=== PATIENT | male | born 1970 | race Hispanic/Latino ===

== ENCOUNTER → 2022-10-02 | Outpatient (CLI) | payer OTHER ==
[~2022-10-02] MED LIST: IOHEXOL 350 MG/ML 100ML INFUS..BTL IV ONE
== END | disposition home or self-care (01) ==
LOC: RAH 07:45
PROVIDERS: ATTEND Internal Medicine Cardiovascular Disease
DX: I25.10 Atherosclerotic heart disease of native coronary artery without angina pectoris (principal)
CPT/HCPCS: 75574; Q9967 ×2

== ENCOUNTER → 2023-03-30 | Outpatient (CLI) | payer OTHER ==
[~2023-03-30] MED LIST changes: +AEC81 PO; +ALBU0.63 IH; +ATOR40TA69 PO; +FAMO20TA8 PO; +FURO20TA6 PO; +INSU3INS3 SQ; -IOHEXOL 350 MG/ML 100ML INFUS..BTL IV ONE; +METF-446 PO; +METO25 PO; +SACU1TAB PO; +SEMA7TAB2 PO; +TICA90TA PO
== END | disposition home or self-care (01) ==
LOC: SHCH 08:28
PROVIDERS: ATTEND Internal Medicine Cardiovascular Disease
DX: I08.1 Rheumatic disorders of both mitral and tricuspid valves (principal); I10 Essential (primary) hypertension; I42.9 Cardiomyopathy, unspecified; E78.5 Hyperlipidemia, unspecified
CPT/HCPCS: 93306

== ENCOUNTER 2024-10-31 16:47 | Emergency (ER) | payer OTHER ==
[~2024-10-31] VITALS: Ht 167.6 cm; Wt 85.3 kg
--- NOTE | 2024-10-31 17:12 | NUR ---
PLACED A CALL TO PEP LINE.
--- NOTE | 2024-10-31 17:12 | ERN ---
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 ONSET APPROXIMATELY 15 MINUTES PRIOR TO ARRIVAL. NO ACTIVE BLEEDING AT THIS TIME PATIENT STATES HE SAID THE HEPATITIS-B SERIES. THE SOURCE PATIENT IS KNOWN AND WE WILL BE DRAWN FOR HIV AND HEPATITIS, PATIENT IS CURRENTLY BEING DRAWN. ADDITIONALLY WE WILL FOLLOW TO NOTIFY THE POST EXPOSURE HOTLINE. Allergies: Coded Allergies: latex (Unverified Allergy, Unknown, 12/16/22) Home Meds Active Scripts Metoprolol Tartrate (Lopressor) 25 Mg Tab, 12.5 MG PO BID, #30 TAB Prov:ALONSO SPARROW MD 12/26/22 Furosemide (Lasix 20Mg Tab) 20 Mg Tablet, 20 MG PO BID@,, #60 TAB Prov:ALONSO SPARROW MD 12/26/22 Reported Medications Sacubitril/Valsartan (Entresto 24 mg-26 mg Tablet) 1 Each Tablet, 1 EACH PO HS, TAB 12/27/22 Albuterol Sulfate (Albuterol Sulfate) 0.63 Mg/3 Ml Vial.neb, 0.63 MG IH AD PRN for SHORTNESS OF BREATH/WHEEZING, INH 12/22/22 Famotidine (Famotidine) 20 Mg Tablet, 20 MG PO BID, TAB 12/16/22 Insulin Glargine,Hum.rec.anlog (Lantus Solostar) 100 Unit/1 Ml Insuln.pen, 50 UNIT SQ BID, SYRINGE 50-70 UNITS 12/16/22 Semaglutide (Rybelsus) 7 Mg Tablet, 7 MG PO DAILY, TAB 12/16/22 Ticagrelor (Brilinta) 90 Mg Tablet, 90 MG PO BID, TAB 12/16/22 Aspirin (ASPIRIN 81 MG ECTAB) 81 Mg Ectab, 81 MG PO DAILY for 90 Days, #30 TAB.EC 12/16/22 Metformin HCl (Metformin HCl) 1,000 Mg Tablet, 1000 MG PO BID, TAB 12/16/22 Atorvastatin Calcium (LIPITOR) 80 Mg Tablet, 80 MG PO DAILY, TAB 12/16/22 Past Medical History Past Medical History: Asthma, CAD, Diabetes-Type II, GERD, High Cholesterol, Heart Disease, Hypertension, Kidney Stone, SD Additional Past Medical Hx: HX: HEP A, FATTY LIVER Surgical History: Appendectomy, CABG Surgical History Other: HEART CATH X 4 W/3 STENTS, EGD/COLONSCOPY RN Note Reviewed/Agreed w/PFSH: Yes Review of System Dictation CONSTITUTIONAL: NEGATIVE EXCEPT FOR HPI HEAD/FACE: NEGATIVE EXCEPT FOR HPI EENT: NEGATIVE EXCEPT FOR HPI RESPIRATORY: NEGATIVE EXCEPT FOR HPI GASTROINTESTINAL/ABDOMINAL: NEGATIVE EXCEPT FOR HPI GENITOURINARY: NEGATIVE EXCEPT FOR HPI MUSCULOSKELETAL: NEGATIVE EXCEPT FOR HPI INTEGUMENTARY: NEGATIVE EXCEPT FOR HPI NEEDLE STICK INJURY TO PLANTAR ASPECT LEFT THUMB AT THE BASE NEUROLOGICAL/PSYCH: NEGATIVE EXCEPT FOR HPI HEMATOLOGIC/LYMPHATIC: NEGATIVE EXCEPT FOR HPI ALL SYSTEMS NEGATIVE, EXCEPT NOTED ABOVE. 13 POINT REVIEW OF SYSTEMS ASSESSED AND ALL NEGATIVE EXCEPT FOR ABOVE. Initial Vital Sign VS Vital Signs Date Time Temp Pulse Resp B/P (MAP) Pulse Ox O2 Delivery O2 Flow Rate FiO2 10/31/24 16:48 98.2 88 18 130/67 98 Room Air 0 10/31/24 19:21 21 Physical Exam Dictation VITAL SIGNS REVIEWED NO PAIN GENERAL APPEARANCE: ALERT, ORIENTED X 3, NO ACUTE DISTRESS, WELL DEVELOPED, NOURISHED. HEAD AND FACE: NON-TRAUMATIC. EYES: PERRL, PINK CONJUNCTIVAS, EYELID NO TRAUMA, ANTERIOR CHAMBER WITH ARCUS SENILIS. EARS: PINNAS INTACT AND NO SIGNS OF TRAUMA OR ERYTHEMA EAR CANALS CLEAR AND NO DISCHARGE TM NO ERYTHEMA NOSE: NO DISCHARGE, NO BLEEDING. OROPHARYNX: MOUTH NORMAL, TONGUE PINK, PHARYNX CLEAR,NO ERYTHEMA, TONSILS NO EXUDATES, NO ABSCESSES NOTED, MUCOUS MEMBRANE MOIST NECK: SUPPLE, NON-TENDER, NO THYROMEGALY, NO MASSES, NO JVD, NO BRUITS BREAST:DEFERRED CHEST:NO TENDERNESS, NO CREPITUS, NO PARADOXICAL MOVEMENT, NO RETRACTIONS LUNGS:CLEAR, WELL-VENTILATED, SYMMETRIC, NO RALES, NO WHEEZING, NO RHONCHI, NO STRIDOR, GOOD BREATH SOUNDS BILATERALLY HEART: REGULAR RATE, REGULAR RHYTHM, NO MURMUR, NO GALLOPS VASCULAR: NO PERIPHERAL EDEMA, ABDOMEN: SOFT, POSITIVE BOWEL SOUNDS, NONDISTENDED, NO GUARDING, NONTENDER, NO REBOUND, NO MASSES NO HEPATOMEGALY, NO SPLENOMEGALY, NO WHEATLEY'S SIGN, NO HERNIAS. RECTAL: DEFERRED GENITAL: DEFERRED NEUROLOGICAL: NORMAL SPEECH, MOTOR FUNCTION INTACT, SENSORY FUNCTION INTACT MUSCULOSKELETAL: NECK NONTENDER, FULL RANGE OF MOTION, BACK NONTENDER, FULL RANGE OF MOTION, EXTREMITIES: NONTENDER, FULL RANGE OF MOTION SKIN: COLOR PINK, DRY, SUPERFICIAL NEEDLE STICK INJURY TO DORSAL ASPECT OF LEFT THUMB BASE. NO ACTIVE BLEEDING LYMPHATIC: DEFERRED Results (Laboratory/Radiology) Laboratory/Radiology Laboratory Tests Test 10/31/24 17:24 Hepatitis B Surface Antibody. Positive (Reactive) Hepatitis B Core Total Antibody. Non-Reactive (Nonreactive) Hepatitis C Antibody Non-Reactive (Nonreactive) HIV (1&2) Antibody Non-Reactive (Negative) HIV P24 Antigen, Qualitative Non-Reactive (Negative) Labs Reviewed?: Yes ED Course ED Course Orders Procedure Category Date Status Time Hepatitis C Ab LAB 10/31/24 Complete W/Reflex To Pcr 17:06 Hepatitis B Surface LAB 10/31/24 Complete Antibody 17:06 Hepatitis B Core Total LAB 10/31/24 Complete 17:06 Hiv 1-2 W/Reflex To LAB 10/31/24 Complete Confirm 17:06 Vital Signs Date Time Temp Pulse Resp B/P (MAP) Pulse Ox O2 Delivery O2 Flow Rate FiO2 10/31/24 19:21 98.4 88 18 132/78 99 Room Air* 0 21 10/31/24 16:48 98.2 88 18 130/67 98 Room Air 0 19:00 hours, patient is aware that he has HIV negative. He has already been in touch per the hospital protocol with post exposure hotline. No recommendations at this time. Patient discharged home to follow up with his doctor and Employee Health in the next 1-2 days per protocol. Medical Decision Making MDM Medical discharge making based on labs and consult with post exposure hotline. HIV negative No further recommendations from hotline Patient discharged home to follow up with employee health in his primary care doctor. DX & DISP Disposition: Discharge Departure Impression: Primary Impression: Needle stick injury of finger of left hand Condition: Stable Additional Instructions: Follow-up with primary care provider in 1 to 2 days. Take medications as directed here in the emergency room. Okay to continue home medications unless otherwise discussed during your visit in the emergency room today. Return to your nearest emergency room if symptoms worsen or if there is no improvement. Call 911 if you need immediate assistance. Take Tylenol or Motrin [id number] as needed and if no contraindications are present. Increase oral hydration. A wound culture or urine culture was ordered here in the emergency room department please follow-up with primary care provider and advise them to get repeat ports from our facility. If you had any Robinson wrap/splints that were applied here, please do not remove them until you see your primary care or specialty. Follow back up with your primary care doctor and Employee Health per hospital protocol. Referrals: NONE (PCP) Time of Disposition: 19:04 I have reviewed the case, and I agree with, Diagnosis and Plan ATTESTATION BY PHYSICIAN I PERFORMED THE SUBSTANTIVE PORTION OF THE VISIT. I HAVE REVIEWED AND PERSONALLY MADE AND APPROVED THE MANAGEMENT PLAN THAT IS DOCUMENTED IN THE NOTE BY MYSELF FOR THE A PP. I ACKNOWLEDGED FOR RESPONSIBILITY FOR THE PATIENT'S MANAGEMENT PLAN. BRIGITTE CAST NP Oct 31, 2024 17:12 OCTAVIO MCFADDEN MD Nov 02, 2024 07:35
[2024-10-31 18:39] LABS: HIV 1&2 ANTIBODY Non-Reactive (Negative); HIV-1 p24 Antigen Non-Reactive (Negative)
--- NOTE | 2024-10-31 19:19 | NUR ---
PATIENT TALKED TO ROSALIND FROM PEP LINE.
[2024-10-31 19:21] VITALS: BP 132/78; PULSE 88; RESP 18; TEMP 98.4; O2SAT 99
[2024-11-01 13:58] LABS: HEPATITIS B CORE AB TOTAL Non-Reactive (Nonreactive); HEPATITIS B SURFACE ANTIBODY Positive (Reactive); HEPATITIS C ANTIBODY Non-Reactive (Nonreactive)
== END 2024-10-31 19:22 | disposition home or self-care (01) ==
LOC: EDH 16:47
DX: S61.032A Puncture wound without foreign body of left thumb without damage to nail, initial encounter (principal); E11.9 Type 2 diabetes mellitus without complications; E78.00 Pure hypercholesterolemia, unspecified; I10 Essential (primary) hypertension; I25.10 Atherosclerotic heart disease of native coronary artery without angina pectoris; J45.909 Unspecified asthma, uncomplicated; K21.9 Gastro-esophageal reflux disease without esophagitis; Z77.21 Contact with and (suspected) exposure to potentially hazardous body fluids; Z79.02 Long term (current) use of antithrombotics/antiplatelets; Z79.4 Long term (current) use of insulin; Z79.82 Long term (current) use of aspirin; Z79.84 Long term (current) use of oral hypoglycemic drugs; Z79.899 Other long term (current) drug therapy; Z90.49 Acquired absence of other specified parts of digestive tract; Z95.1 Presence of aortocoronary bypass graft; W46.0XXA Contact with hypodermic needle, initial encounter; Y93.89 Activity, other specified; Y92.89 Other specified places as the place of occurrence of the external cause; Y99.8 Other external cause status
CPT/HCPCS: 36415; 86701; 86704; 86706; 86803; 87390; 99283

== ENCOUNTER 2025-04-03 05:45 | Day surgery (SDC) | payer OTHER, SELFPAY ==
[2025-03-30 14:01] VITALS: BP 163/82; PULSE 80; RESP 18; TEMP 97.7
--- NOTE | 2025-03-30 14:07 | EKG ---
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
[2025-03-30 14:09] LABS: BASOPHILS # (AUTO) 0.08 K/uL (0.00-0.20); BASOPHILS % (AUTO) 0.9 % (0.0-5.0); EOSINOPHILS # (AUTO) 0.11 K/uL (0.00-0.70); EOSINOPHILS % (AUTO) 1.3 % (0.0-8.0); HEMATOCRIT 44.4 % (42-54); IMMATURE GRANULOCYTE ABSOLUTE 0.04 K/uL (0-1); LYMPHOCYTES # (AUTO) 2.9 K/uL (1.0-4.8); LYMPHOCYTES % (AUTO) 32.9 % (21.0-51.0); MEAN CORPUSCULAR HEMOGLOBIN 29.1 pg (27.0-33.0); MEAN CORPUSCULAR HGB CONC 33.6 g/dL (32.0-36.0); MEAN CORPUSCULAR VOLUME 86.7 fL (79-99); MONOCYTES # (AUTO) 0.6 K/uL (0.1-1.0); MONOCYTES % (AUTO) 6.3 % (3.0-13.0); NEUTROPHILS # (AUTO) 5.1 K/uL (1.8-7.7); NEUTROPHILS % (AUTO) 58.1 % (40.0-77.0); PLATELET COUNT (AUTO) 243 K/uL (130-400); RED BLOOD CELL COUNT(AUTO) 5.12 MIL/uL (4.50-6.20); RED CELL DISTRIBUTION WIDTH 12.5 % (11.0-15.5); WHITE BLOOD COUNT (AUTO) 8.8 K/uL (4.8-10.8)
[2025-03-30 14:21] LABS: INR 1.02 (0.85-1.15); PROTHROMBIN TIME 10.8 SEC (9.6-11.6)
[2025-03-30 14:24] LABS: CREATININE 0.9 mg/dL (0.5-1.3); POTASSIUM 3.8 mmol/L (3.5-5.1)
[2025-03-30 14:28] LABS: APPEARANCE,URINE CLEAR (CLEAR); BILIRUBIN,URINE NEGATIVE (NEGATIVE); COLOR,URINE LIGHT-YELLOW (YELLOW); GLUCOSE, URINE (UA) >=1000 mg/dL (NEGATIVE); KETONES,URINE NEGATIVE (NEGATIVE); LEUKOCYTE ESTERASE ,URINE NEGATIVE Leu/uL (NEGATIVE); NITRATE,URINE NEGATIVE (NEGATIVE); OCCULT BLOOD,URINE NEGATIVE (NEGATIVE); PH,URINE 5.5 (5.0-8.0); PROTEIN,URINE NEGATIVE (NEGATIVE); UROBILINOGEN,URINE 0.2 mg/dL (0.2-1.0)
[2025-03-30 14:31] LABS: ADD UA MICROSCOPIC NO
[2025-03-30 14:42] LABS: B-TYPE NATRIURETIC PEPTIDE 30 pg/mL (0-100)
--- NOTE | 2025-03-30 15:12 | HMCIMG ---
Exam Type: CHEST 1VW Clinical Information: PRE OP Comparison: None Findings: There is status post median sternotomy. The lungs are clear of infiltrates. The heart is normal in size. Impression: Clear lungs.
[2025-04-03] VITALS (9 sets, daily range): BP systolic 113–149; BP diastolic 69–86; PULSE 69–78; RESP 9–16; TEMP 97.1–97.3
[~2025-04-03] VITALS: Ht 165.1 cm; Wt 82.6 kg
[~2025-04-03 05:45] MED LIST changes: -AEC81 PO; -ALBU0.63 IH; +APIX5TAB PO; +ASPI-1146 PO; +CLOP75TA32 PO; +EMPA10TA PO; -FAMO20TA8 PO; -FURO20TA6 PO; +INSU200I SQ; -INSU3INS3 SQ; +METF-444 PO; -METF-446 PO; +METO-391 PO; -METO25 PO; +SEMA14TA2 PO; -SEMA7TAB2 PO; -TICA90TA PO; +lantus SQ
[2025-04-03] MEDS: 0.9%NACL 1000ML 1,000 ML IV SCH (06:40)
[2025-04-03] MEDS ORDERED: LIDOCAINE HCL 400MG/20ML VIAL ONE (07:10)
[2025-04-03] MEDS ORDERED: IOHEXOL-350 50ML VIAL IV ONE (07:10)
[2025-04-03] MEDS ORDERED: VERAPAMIL HCL 2.5 MG/ML VIAL ONE (07:10)
[2025-04-03] MEDS ORDERED: IOHEXOL 350 MG/ML 100ML INFUS..BTL IV ONE ×2 (07:10→08:53)
[2025-04-03] MEDS ORDERED: HEParin 10,000 UNIT/10ML (1,000 UNIT/ML) VIAL ONE (07:10)
[2025-04-03] MEDS ORDERED: HEParin-NS 1,000 UNIT/500 ML 1,500 ML IV ONE (07:11)
[2025-04-03] MEDS ORDERED: NITROGLYCERIN 50MG VIAL ONE (07:11)
[2025-04-03] MEDS ORDERED: MIDAZOLAM HCL 1 MG/ML 2ML VIAL ONE ×3 (07:25→08:57)
[2025-04-03] MEDS ORDERED: FENTanyl CITRate PF 50 MCG/1 ML 2ML VIAL ONE ×2 (07:25→08:56)
[2025-04-03] MEDS ORDERED: DOPamine HCL 400 MG/D5%-WATER 0 ML IV ONE (07:47)
[2025-04-03] MEDS ORDERED: ATROPINE 1MG SYG IVP ONE (07:47)
[2025-04-03] MEDS ORDERED: GLUCAGON 1MG KIT 1 MG ML IM PRN (10:00)
[2025-04-03] MEDS ORDERED: 0.9%NACL 1000ML 1,000 ML IV SCH (10:00)
[2025-04-03] MEDS ORDERED: DEXTROSE 50%-WATER 50 ML DISP.SYRIN IV PRN (10:00)
--- NOTE | 2025-04-03 10:00 | PRN ---
PROCEDURE REPORT DATE OF PROCEDURE: April 03, 2025 ESCALATOR INSTALLER: [ Angie pritchard MD] PROCEDURE PERFORMED: Conscious sedation Ultrasound guided right radial artery access Selective left coronary artery angiogram Selective SVG to diagonal angiogram Selective SVG to ramus intermedius angiogram Selective SVG to OM2 angiogram Left heart catheterization Status post successful PCI of the ostial and prox to mid SVG to OM2 graft (3 x 26 mm and 3 x 12 mm laura ELIAN) TR band 13 hamida over right radial artery INDICATION: Angina DESCRIPTION OF PROCEDURE: After informed consent was obtained, the patient was prepped and draped in the usual sterile fashion. A 6 Belgian arterial sheath was inserted in the right radial artery using ultrasound guidance with first pass wall puncture. The arterial sheath was aspirated and flushed. A 6 Belgian JL 3.5 was then advanced to the ascending aorta over an exchange length J-tip guidewire, was aspirated and flushed, and was used for selective coronary angiograms in multiple obliquities. A JR-4 was advanced in a similar fashion to the ascending aorta over the J-tipped guidewire and was used for selective right coronary angiograms in multiple oblique views with findings as outlined below. The JR-4 catheter advanced into the LV and pressures were obtained with a pull-back across the aortic valve. We attempted to used the JR4 catheter select engage the SVG grafts were a unable to so at this point we exchanged the JR4 diagnostic catheter for a six Belgian LCB with similar results and we are finally able to engage with an AL1 diagnostic catheter performing angiogram of the SVG to ramus graft SVG to diagonal graft and SVG to OM2 graft. Following review of the findings decision was made to intervene on patient's critical SVG to OM2 graft. We exchanged the diagnostic catheters for a six Belgian AL 0.75 guide but due to lack of support we transitioned to an AL1 with similar results as well as an Ikari left guide catheter. Finally we are able to obtain selective engagement using in AL two guide and we advanced a Prowater into the distal SVG to OM graft. We then performed direct stenting using a 3 x 26 mm laura Cole drug- eluting stent in the prox to mid segment to nominal pressures. We then deployed a 2nd 3 x 12 mm laura Cole drug-eluting stent within the ostial SVG graft to nominal pressures. And both the stents were post dilated with a 3 x 20 mm NC balloon to 14 and 16 HAMIDA respectively. Final angiographic image revealed adventism of RONNI three flow with no dissections or perforations. At this time all wires and catheters removed from the body and to A TR band was placed over right radial artery. Patient tolerated procedure well with no postprocedure complication was transferred to manager cath lab holding in stable c ondition FLUOROSCOPY TIME: 44.1 min LEFT HEART HEMODYNAMICS: LVEDP 15 mm Hg and no gradient Ao CORONARY ANGIOGRAM: LEFT MAIN: Patent and 0% stenosis. Gives rise to LCx, RI, and LAD. LEFT ANTERIOR DESCENDING: Large vessel giving rise to two Diagonal branches. There is 100% mid LAD VACUUM CLEANER ASSEMBLER just after the first septal artery with RONNI 0 flow. Fills distally by a patent KELLY graft RAMUS INTERMEDIUS: Small caliber and proximally 1.5 mm with 70-80% ostial stenosis followed by luminal irregularities LEFT CIRCUMFLEX: Large, dominant and gives rise to two OM branches. OM1 is small approximately 1 mm. OM2 has 100% ostial VACUUM CLEANER ASSEMBLER. RIGHT CORONARY ARTERY: Not engaged given anatomy is known from recent angiogram. 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 GRAFT ANATOMY: KELLY Graft not engaged as his noted to be patent from recent angiogram SVG to D1 graft is widely patent with ostial and proximal stents that are patent as well SVG to ramus intermedius graft is 100% occluded SVG to OM2 graft has 80% ostial and prox to mid stenosis HEMOSTASIS: TR band 12 hamida over right radial artery INTERVENTIONS: Status post successful PCI of the ostial and prox to mid SVG to OM2 graft (3 x 26 mm and 3 x 12 mm laura ELIAN) COMPLICATIONS: None FINDINGS: Severe multivessel CAD status post successful revascularization of the SVG to OM2 graft ESTIMATED BLOOD LOSS: 5 cc RECOMMENDATIONS/INSTRUCTIONS: Aggressive risk factor modification. Patient require 12 months of dap (aspirin 81 mg daily/Plavix 75 mg daily) in addition to high-intensity statin therapy and beta-lois CONTRAST DELIVERED TO PATIENT (mL): 270cc ANGIE Whiting MD, MD April 03, 2025 09:59
--- NOTE | 2025-04-03 12:18 | NUR ---
report: hand-off communication given to justyn teran
--- NOTE | 2025-04-03 13:00 | NUR ---
Vazband removed at this time. no bleeding noted. site clean, dry and intact. dressed with sterile 2x2 gauze and tegaderm dressing.
[2025-04-04] MEDS ORDERED: cloPIDOgrel 75MG TAB PO SCH (09:00)
[2025-04-04] MEDS ORDERED: ASPIRIN 81MG CHEW TAB PO SCH (09:00)
== END 2025-04-03 13:35 | disposition home or self-care (01) ==
LOC: DAH 05:45
PROVIDERS: ATTEND Student in an Organized Health Care Education/Training Program
DX: I25.118 Atherosclerotic heart disease of native coronary artery with other forms of angina pectoris (principal); I25.718 Atherosclerosis of autologous vein coronary artery bypass graft(s) with other forms of angina pectoris; I25.82 Chronic total occlusion of coronary artery; I25.5 Ischemic cardiomyopathy; E11.9 Type 2 diabetes mellitus without complications; I10 Essential (primary) hypertension; E78.5 Hyperlipidemia, unspecified; I25.2 Old myocardial infarction; Z95.5 Presence of coronary angioplasty implant and graft; Z79.899 Other long term (current) drug therapy; Z79.84 Long term (current) use of oral hypoglycemic drugs; Z79.82 Long term (current) use of aspirin; Z95.1 Presence of aortocoronary bypass graft; Z90.49 Acquired absence of other specified parts of digestive tract; Z98.890 Other specified postprocedural states; Z79.01 Long term (current) use of anticoagulants
CPT/HCPCS: 80048; 83880; 85025; 85610; 85730; 81003; 36415; 71045; 93005; 93459; 85347 ×2; 82948; C9604; Q9965 ×3; C1769 ×2; C1887 ×5; C1725; C1874 ×2; C1894; A4649; J3010 ×2; J3490 ×3; J7030; J1644 ×2; J2250 ×3; Q9967 ×2; A4215; A4222; A4221; A4663; A4216; A4606; A4223 ×3; 99156; 99157; J0461; J1265

== ENCOUNTER 2025-07-27 10:24 | Emergency (ER) | payer OTHER ==
[~2025-07-27] VITALS: Ht 167.6 cm; Wt 81.6 kg
[~2025-07-27 10:24] MED LIST changes: -CYCL-309 PO; -GADOTERATE MEGLUMINE 10 MMOL/20 ML VIAL IV ONE; -KETO10TA2 PO; -ORPHENADRINE 60MG/2ML ONE
[2025-07-27] MEDS: ORPHENADRINE 60MG/2ML IM ONE (10:55)
--- NOTE | 2025-07-27 11:36 | ERN ---
General Chief Complaint: Shoulder Injury/Pain Stated Complaint: SHOULDER Time Seen by MD: 10:26 Time Seen by Midlevel: 10:26 Source: patient History of Present Illness Initial Comments The patient is a 54-year-old male presenting to the emergency department for evaluation of right shoulder pain. The patient reports having an MRI performed earlier today and he was in a position which exacerbated his shoulder pain so he decided to report to the ER for further evaluation. Allergies: Coded Allergies: latex (Unverified Allergy, Unknown, 12/16/22) Home Meds Reported Medications Insulin Lispro (Humalog Kwikpen) 200 Unit/Ml (3 Ml) Insuln.pen, SQ AD PRN for elevated bs, SYRINGE 03/30/25 [lantus] No Conflict Check, 50 UNIT SQ BID PRN for elevated bs 03/30/25 Clopidogrel Bisulfate (Clopidogrel) 75 Mg Tablet, 75 MG PO DAILY, TAB 03/30/25 Semaglutide (Rybelsus) 14 Mg Tablet, 14 MG PO AM, TAB 03/30/25 Aspirin (Ecotrin) 325 Mg Tablet.dr, 325 MG PO AM, TAB 03/30/25 Empagliflozin (Jardiance) 10 Mg Tablet, 1 TAB PO HS for 30 Days, #30 TAB 0 Refills 12/20/24 Apixaban (Eliquis) 5 Mg Tablet, 1 TAB PO BID for 30 Days, #60 TAB 0 Refills 12/20/24 Atorvastatin Calcium (LIPITOR) 80 Mg Tablet, 80 MG PO AD, TAB 12/20/24 Metformin HCl (Metformin HCl) 500 Mg Tablet, 1 TAB PO BID for 30 Days, #60 TAB 0 Refills 12/20/24 Sacubitril/Valsartan (Entresto 24 mg-26 mg Tablet) 24 Mg-26 Mg Tablet, 1 TAB PO BID for 30 Days, #60 TAB 0 Refills 12/20/24 Metoprolol Succinate (Metoprolol Succinate) 50 Mg Tab.er.24h, 50 MG PO BID, TAB 12/20/24 Past Medical History Past Medical History: CAD, Diabetes-Type II, GERD, High Cholesterol, Heart Disease, Hypertension Medical History Other: HX: HEP A, FATTY LIVER Past Surgical History: Appendectomy, CABG Surgical History Other: CARDIAC STENTS/HEART CATHS ROS Dictation CONSTITUTIONAL: Negative except for HPI HEAD/FACE: Negative except for HPI EENT: Negative except for HPI RESPIRATORY: Negative except for HPI GASTROINTESTINAL/ABDOMINAL: Negative except for HPI GENITOURINARY: Negative except for HPI MUSCULOSKELETAL: Negative except for HPI INTEGUMENTARY: Negative except for HPI NEUROLOGICAL/PSYCH: Negative except for HPI HEMATOLOGIC/LYMPHATIC: Negative except for HPI All Systems Negative, Except as noted above. 13 point review of systems assessed and all negative except for above. Physical Exam Physical Exam Dictation Vital Signs reviewed General Appearance: Alert, oriented x 3, no acute distress, well developed, nourished. Head and Face: non-traumatic. Eyes: PERRL, pink conjunctivas, eyelid no trauma, anterior chamber with arcus senilis. Ears: Pinnas intact and no signs of trauma or erythema ear canals clear and no discharge TM no erythema Nose: No discharge, no bleeding. Oropharynx: Mouth normal, tongue pink, pharynx clear,no erythema, tonsils no exudates, no abscesses noted, mucous membrane moist Neck: Supple, non-tender, no thyromegaly, no masses, no JVD, no bruits Breast:Deferred Chest:No tenderness, no crepitus, no paradoxical movement, no retractions Lungs:Clear, well-ventilated, symmetric, no rales, no wheezing, no rhonchi, no stridor, good breath sounds bilaterally Heart: Regular rate, regular rhythm, no murmur, no gallops Vascular: no peripheral edema, Abdomen: Soft, positive bowel sounds, nondistended, no guarding, nontender, no rebound, no masses no hepatomegaly, no splenomegaly, no Jeffers's sign, no hernias. Rectal: Deferred Genital: Deferred Neurological: Normal speech, motor function intact, sensory function intact Musculoskeletal: Neck nontender, full range of motion, back nontender, full range of motion, Extremities: nontender, full range of motion Skin: Color pink, dry, no turgor, no rash, no lacerations, no abrasions, no contusions. Lymphatic: Deferred MDM MDM: Differential diagnosis: Shoulder strain, calcific tendinitis, dislocation There are no social concerns with this patient. Prescription drug management Prescriptions will include: Toradol and Flexeril Medical management and examination interpretation discussions were had by me with other qualified healthcare professionals as indicated for the patient's care. ED Course Orders Procedure Category Date Status Time Ketorolac PHA 07/27/25 Complete Tromethamine 30mg/Ml 11:00 Orphenadrine Citrate PHA 07/27/25 Complete (Norflex) 11:00 Current Medications Medications (Trade) Dose Ordered Sig/Kylie Route PRN Reason Start Time Stop Time Status Last Admin Dose Admin Ketorolac Tromethamine (toRADol) 30 mg ONCE ONCE IM 07/27/25 11:00 07/27/25 11:01 DC 07/27/25 10:55 Orphenadrine Citrate (Norflex) 60 mg ONCE ONCE IM 07/27/25 11:00 07/27/25 11:01 DC 07/27/25 10:55 Vital Signs Date Time Temp Pulse Resp B/P (MAP) Pulse Ox O2 Delivery O2 Flow Rate FiO2 07/27/25 10:27 97.2 88 16 163/94 99 Room Air 0 DX & DISP Disposition: Discharge Departure Impression: Primary Impression: Right shoulder pain Condition: Stable Scripts Cyclobenzaprine HCl (Cyclobenzaprine HCl) 10 Mg Tablet 1 TAB PO TID for muscle spasms for 10 Days, #30 TAB 0 Refills Prov: RAD STANFORD 07/27/25 Ketorolac Tromethamine (Ketorolac Tromethamine) 10 Mg Tablet 1 TAB PO BID for pain for 5 Days, #10 TAB 0 Refills Prov: RAD STANFORD 07/27/25 Referrals: RONN WORTHY MD (PCP) I have reviewed the case, and I agree with, Diagnosis and Plan I performed the substantive portion of the visit. I have reviewed and personally made and approve the management plan that is documented in the note by myself or the JUNITO. I acknowledge for responsibility for the patient's management plan. RAD STANFORD Jul 27, 2025 11:36
[2025-07-27] MEDS ORDERED: KETO10TA2 PO (11:42)
[2025-07-27] MEDS ORDERED: CYCL-309 PO (11:42)
[2025-07-27 11:54] VITALS: BP 155/78; PULSE 80; RESP 17; TEMP 97.3; O2SAT 99
== END 2025-07-27 11:56 | disposition home or self-care (01) ==
LOC: EDH 10:24
DX: M25.511 Pain in right shoulder (principal); E11.9 Type 2 diabetes mellitus without complications; E78.00 Pure hypercholesterolemia, unspecified; I25.10 Atherosclerotic heart disease of native coronary artery without angina pectoris; Z79.01 Long term (current) use of anticoagulants; Z79.02 Long term (current) use of antithrombotics/antiplatelets; Z79.84 Long term (current) use of oral hypoglycemic drugs; Z79.899 Other long term (current) drug therapy; Z90.49 Acquired absence of other specified parts of digestive tract; Z91.040 Latex allergy status; Z95.1 Presence of aortocoronary bypass graft; Z95.5 Presence of coronary angioplasty implant and graft
CPT/HCPCS: 99284; 96372 ×2; J1885; J2360

== ENCOUNTER → 2025-07-27 | Outpatient (CLI) | payer OTHER ==
[~2025-07-27] MED LIST changes: +CYCL-309 PO; +GADOTERATE MEGLUMINE 10 MMOL/20 ML VIAL IV ONE; +KETO10TA2 PO; +ORPHENADRINE 60MG/2ML ONE
--- NOTE | 2025-07-28 22:55 | HMCIMG ---
NON-CONTRAST MRI OF THE RIGHT SHOULDER Clinical history: Right shoulder pain TECHNIQUE: MRI of the right shoulder performed without intravenous contrast. Multiplanar, multisequence images were obtained. Evaluation limited due to motion artifact. COMPARISON: None FINDINGS: There is type I acromion with no subacromial spur. The coracoclavicular ligament is intact. Mild acromioclavicular joint osteoarthritis with periosseous soft?tissue thickening and edema. There is mild subacromial-subdeltoid bursitis. The peritendinous soft tissues are normal. The supraspinatus and anterior infraspinatus insertions demonstrate moderate tendinosis. No full?thickness rotator cuff tear is identified. Subscapularis and teres minor tendons are intact. No rotator cuff muscle atrophy. The long head of the biceps tendon is normal in course and morphology. Bicipital anchor is intact. There is normal bone marrow signal within the shoulder girdle without fracture, avascular necrosis, or osteomyelitis. A complete posterior labral tear is present with significant attenuation. The anterior?inferior capsule is moderately thickened with associated edema. Mild rotator interval scarring with edema. The glenohumeral joint contains a mild effusion that extends into the subcoracoid bursa and the bicipital groove. The glenohumeral joint is intact. The soft tissues are normal. IMPRESSION: 1. Posterior labral tear with significant attenuation. 2. Moderate anterior?inferior capsular thickening and mild rotator interval scarring with edema. Imaging features are concerning for adhesive capsulitis. 3. Moderate supraspinatus and anterior infraspinatus insertional tendinosis. Mild subacromial?subdeltoid bursa edema. 4. Mild acromioclavicular joint osteoarthritis with periosteal soft?tissue edema. 5. Mild glenohumeral joint effusion extending into the subcoracoid bursa and bicipital groove. /[place]
== END | disposition home or self-care (01) ==
LOC: RAH 08:23
PROVIDERS: ATTEND Internal Medicine Nephrology
DX: M19.011 Primary osteoarthritis, right shoulder (principal); M67.813 Other specified disorders of tendon, right shoulder; M25.411 Effusion, right shoulder; M75.51 Bursitis of right shoulder; M25.511 Pain in right shoulder; R60.1 Generalized edema
CPT/HCPCS: 73221; J1885; A9575; J2360